=== PATIENT | female | born 1950 | race Caucasian/White ===

== ENCOUNTER → 2017-11-11 | Outpatient (CLI) | payer BC ==
[~2017-11-11] MED LIST: ALPR.5 PO; AMIT50 PO; AMIT75 PO; ASPI81EC; ATEN25 PO; ATEN50 PO; CALCIUM; CALCIUM/VIT D PO; CIPR500 PO; CLIN300 PO; DOXY100 PO; ERGO50000 PO; ESTROVEN; FENO160 PO; LISI5 PO; METO25 PO; MULVITMINF; NITR100CA PO; OMEP10ER PO; OMEP20ER PO; PARO20 PO; PHENA200 PO; PRAV20 PO; PROACE100 PO; QUET25; RXPHEN200 PO; RXPROACE PO; SULTRIDS PO; VIT C; ZOLP10 PO; ZOLP5 PO
== END | disposition home or self-care (01) ==
LOC: LAB SHORT 17:43 → LAB 17:43
DX: R30.0 Dysuria (principal)
CPT/HCPCS: 87077; 87086; 87186

== ENCOUNTER 2018-01-18 22:22 | Emergency (ER) | payer BC ==
[~2018-01-18] VITALS: Ht 154.9 cm; Wt 78.5 kg
[2018-01-18 23:27] LABS: Source, Urine Voided
[2018-01-18] MEDS ORDERED: LOVA40 (23:28)
[2018-01-18 23:46] LABS: Appearance, Urine Cloudy (Clear); Bilirubin, Urine Neg (Neg); Blood, Urine 5+ (Neg); Color, Urine Red (P-Yellow); Glucose Qualitative, Urine Neg (Neg); Ketones, Urine Neg (Neg); Leukocyte Esterase, Urine 3+ (Neg); Nitrite, Urine Neg (Neg); Protein, Urine 3+ (Neg); Urobilinogen, Urine NORM (Normal)
[2018-01-18 23:53] LABS: Red Blood Cells, Urine TNTC /hpf (0-2)
[2018-01-18 23:54] LABS: Bacteria Many /hpf; Squamous Epithelial Cells Few /hpf (Few)
[2018-01-19] MEDS ORDERED: Macrobid 100 M100 MG PO (00:06)
[2018-01-19] MEDS ORDERED: Pyridium200 MG PO (00:06)
== END 2018-01-19 00:22 | disposition home or self-care (01) ==
LOC: ER 22:22
PROVIDERS: Emergency Medicine
DX: R35.0 Frequency of micturition (principal); R39.15 Urgency of urination; Z88.0 Allergy status to penicillin; Z88.5 Allergy status to narcotic agent; Z79.899 Other long term (current) drug therapy; I10 Essential (primary) hypertension; Z87.891 Personal history of nicotine dependence
CPT/HCPCS: 81001; 87077; 87086; 87186; 99283

== ENCOUNTER → 2018-12-09 | Outpatient (CLI) | payer BC ==
[~2018-12-09] MED LIST changes: +ACET325 PO; +ASPI325EC PO; +CRUTCH2 XX; +HYDR1TAB94 PO; +LOSARTAN-HCTZ1 EAC1 PO; +LOVA40; +METO50 PO; +Macrobid 100 M100 MG PO; +Percocet 5-3251 EACH PO; +Pyridium200 MG PO; +TOLT4 PO
== END | disposition home or self-care (01) ==
LOC: LAB SHORT 14:45 → LAB EV 14:45
DX: R35.0 Frequency of micturition (principal)
CPT/HCPCS: 87077; 87086; 87147; 87186

== ENCOUNTER 2020-01-09 13:36 | Inpatient (IN) | payer MEDICARE, BC ==
[~2020-01-09] VITALS: Ht 154.9 cm; Wt 77.4 kg
[2020-01-09 14:01] LABS: Source, Urine Clean Catch
[2020-01-09 14:08] LABS: Bilirubin, Urine Neg (Neg); Blood, Urine Neg (Neg); Glucose Qualitative, Urine Neg (Neg); Ketones, Urine Neg (Neg); Leukocyte Esterase, Urine Neg (Neg); Nitrite, Urine Neg (Neg); Protein, Urine Neg (Neg); Specific Gravity, Urine 1.005 (1.003-1.022); Urobilinogen, Urine NORM (Normal)
[2020-01-09 14:17] LABS: Appearance, Urine Clear (Clear); Color, Urine Pale Yellow (P-Yellow)
[2020-01-09 14:58] LABS: BASOPHILS ABSOLUTE AUTO 0.03 K/mm3 (0.00-0.23); BASOPHILS PERCENT AUTO 1 % (0-2); EOSINOPHILS ABSOLUTE AUTO 0.28 K/mm3 (0.00-0.68); EOSINOPHILS PERCENT AUTO 6 % (0-6); Hematocrit 39.7 % (33.0-51.0); Hemoglobin 13.1 g/dL (11.5-16.0); IMMATURE GRAN ABSOLUTE AUTO 0.01 K/mm3 (0.00-0.10); IMMATURE GRAN PERCENT AUTO 0 % (0-1); LYMPHOCYTES ABSOLUTE AUTO 1.38 K/mm3 (0.84-5.20); LYMPHOCYTES PERCENT AUTO 31 % (21-46); MONOCYTES ABSOLUTE AUTO 0.55 K/mm3 (0.16-1.47); MONOCYTES PERCENT AUTO 12 % (4-13); Mean Corpuscular HGB 30.3 pg (26.0-34.0); Mean Corpuscular Volume 92 fL (80-100); Mean Platelet Volume 9.4 fL (9.1-12.4); NEUTROPHILS ABSOLUTE AUTO 2.27 K/mm3 (1.96-9.15); NEUTROPHILS PERCENT AUTO 50 % (41-73); Platelet Count 304 K/mm3 (150-400); RDW Coefficient Variation 12.5 % (11.7-14.2); RDW Standard Deviation 42.5 fL (35.1-46.3); Red Blood Cell Count 4.32 M/mm3 (3.80-5.20); White Blood Cell Count 4.52 K/mm3 (4.00-11.30)
[2020-01-09 15:12] LABS: International Normalized Ratio 1.01; Prothrombin Time Results 10.8 Sec (9.7-11.5)
[2020-01-09 15:24] LABS: Alanine Aminotransfer (ALT/SGP 53 U/L (12-78); Albumin, Blood 3.5 g/dL (3.4-5.0); Alk Phos 42 U/L (50-136); Anion Gap 5 mmol/L (6-16); Aspartate Aminotrans (AST/SGOT 31 U/L (12-37); Bilirubin, Total 0.6 mg/dL (0.1-1.0); Blood Urea Nitrogen 21 mg/dL (8-24); CO2, Blood 27 mmol/L (21-32); Calcium, Blood 9.2 mg/dL (8.5-10.1); Chloride, Blood 109 mmol/L (98-108); Creatinine, Blood 0.84 mg/dL (0.40-1.00); Globulin, Blood 3.5 g/dL (2.2-4.0); Glomerular Filtration Rate >60 (60-); Glucose, Blood 103 mg/dL (70-99); Potassium, Blood 3.5 mmol/L (3.5-5.5); Sodium, Blood 141 mmol/L (136-145)
[2020-01-09] MEDS ORDERED: FENO160 PO (16:11)
[2020-01-09] MEDS ORDERED: LOSA50 PO (16:11)
[2020-01-09] MEDS ORDERED: OMEP20ER PO (16:11)
[2020-01-09] MEDS ORDERED: TOLTERODINE TART4 MG PO (16:12)
[2020-01-09] MEDS ORDERED: HYDCHL25 PO (16:12)
[2020-01-09] MEDS ORDERED: MELATONIN5 M1 PO (21:24)
[2020-01-10 04:56] LABS: BASOPHILS ABSOLUTE AUTO 0.02 K/mm3 (0.00-0.23); BASOPHILS PERCENT AUTO 1 % (0-2); EOSINOPHILS ABSOLUTE AUTO 0.18 K/mm3 (0.00-0.68); EOSINOPHILS PERCENT AUTO 4 % (0-6); Hematocrit 39.3 % (33.0-51.0); IMMATURE GRAN ABSOLUTE AUTO 0.01 K/mm3 (0.00-0.10); IMMATURE GRAN PERCENT AUTO 0 % (0-1); LYMPHOCYTES ABSOLUTE AUTO 1.79 K/mm3 (0.84-5.20); LYMPHOCYTES PERCENT AUTO 41 % (21-46); MONOCYTES ABSOLUTE AUTO 0.54 K/mm3 (0.16-1.47); MONOCYTES PERCENT AUTO 12 % (4-13); Mean Corpuscular HGB 30.3 pg (26.0-34.0); Mean Corpuscular HGB Conc 33.1 g/dL (31.5-36.5); Mean Corpuscular Volume 92 fL (80-100); Mean Platelet Volume 9.6 fL (9.1-12.4); NEUTROPHILS ABSOLUTE AUTO 1.83 K/mm3 (1.96-9.15); NEUTROPHILS PERCENT AUTO 42 % (41-73); Platelet Count 314 K/mm3 (150-400); RDW Coefficient Variation 12.7 % (11.7-14.2); RDW Standard Deviation 42.2 fL (35.1-46.3); Red Blood Cell Count 4.29 M/mm3 (3.80-5.20); White Blood Cell Count 4.37 K/mm3 (4.00-11.30)
[2020-01-10 05:20] LABS: Anion Gap 5 mmol/L (6-16); Blood Urea Nitrogen 19 mg/dL (8-24); Bun/Creatinine Ratio 25.2 (12.0-20.0); CO2, Blood 27 mmol/L (21-32); Calcium, Blood 9.1 mg/dL (8.5-10.1); Chloride, Blood 108 mmol/L (98-108); Creatinine, Blood 0.76 mg/dL (0.40-1.00); Glomerular Filtration Rate >60 (60-); Glucose, Blood 114 mg/dL (70-99); Magnesium, Blood 2.1 mg/dL (1.6-2.4); Potassium, Blood 3.2 mmol/L (3.5-5.5); Sodium, Blood 140 mmol/L (136-145)
[2020-01-11 06:46] LABS: Anion Gap 4 mmol/L (6-16); Blood Urea Nitrogen 18 mg/dL (8-24); Bun/Creatinine Ratio 22.8 (12.0-20.0); CO2, Blood 27 mmol/L (21-32); Calcium, Blood 9.4 mg/dL (8.5-10.1); Chloride, Blood 110 mmol/L (98-108); Creatinine, Blood 0.79 mg/dL (0.40-1.00); Glomerular Filtration Rate >60 (60-); Glucose, Blood 129 mg/dL (70-99); Potassium, Blood 3.9 mmol/L (3.5-5.5); Sodium, Blood 141 mmol/L (136-145)
[2020-01-12] MEDS ORDERED: ASPI81CH PO (10:21)
[2020-01-12] MEDS ORDERED: ATOR20 PO (10:21)
[2020-01-12] MEDS ORDERED: AMLO5 PO (10:21)
== END 2020-01-12 10:58 | disposition home or self-care (01) | DRG 66 ==
LOC: ER 13:36 → MEDS 17:37
PROVIDERS: Physician Assistant; ADMIT Internal Medicine
DX: I63.512 Cerebral infarction due to unspecified occlusion or stenosis of left middle cerebral artery (principal); I10 Essential (primary) hypertension; E78.5 Hyperlipidemia, unspecified; N32.81 Overactive bladder; R47.81 Slurred speech
CPT/HCPCS: 36415; 70450; 70544; 70549; 70553; 80048; 80053; 81003; 83735; 85025; 85610; 92523; 93005; 93010; 93880; 97110; 97161; 97165; 97535; 99285-25; A9270; A9270-GY; A9579; J1650

== ENCOUNTER → 2021-06-23 | Outpatient (CLI) | payer OTHER, BC ==
[~2021-06-23] MED LIST changes: +AMLO5 PO; +ASPI81CH PO; +ATOR20 PO; +HYDCHL25 PO; +LOSA50 PO; +MELATONIN5 M1 PO; +TOLTERODINE TART4 MG PO
== END | disposition home or self-care (01) ==
LOC: LAB SHORT 14:08
DX: R82.79 Other abnormal findings on microbiological examination of urine (principal)
CPT/HCPCS: 87077; 87086; 87186

== ENCOUNTER 2022-09-12 16:11 | Emergency (ER) | payer OTHER ==
[~2022-09-12] VITALS: Ht 154.9 cm; Wt 77.1 kg
[2022-09-12 16:38] LABS: BASOPHILS ABSOLUTE AUTO 0.03 K/mm3 (0.00-0.23); BASOPHILS PERCENT AUTO 1 % (0-2); EOSINOPHILS ABSOLUTE AUTO 0.19 K/mm3 (0.00-0.68); EOSINOPHILS PERCENT AUTO 4 % (0-6); Hematocrit 42.2 % (33.0-51.0); Hemoglobin 14.3 g/dL (11.5-16.0); IMMATURE GRAN ABSOLUTE AUTO 0.01 K/mm3 (0.00-0.10); IMMATURE GRAN PERCENT AUTO 0 % (0-1); LYMPHOCYTES ABSOLUTE AUTO 1.35 K/mm3 (0.84-5.20); LYMPHOCYTES PERCENT AUTO 26 % (21-46); MONOCYTES ABSOLUTE AUTO 0.55 K/mm3 (0.16-1.47); MONOCYTES PERCENT AUTO 11 % (4-13); Mean Corpuscular HGB 30.4 pg (26.0-34.0); Mean Corpuscular HGB Conc 33.9 g/dL (31.5-36.5); Mean Corpuscular Volume 90 fL (80-100); NEUTROPHILS ABSOLUTE AUTO 3.13 K/mm3 (1.96-9.15); NEUTROPHILS PERCENT AUTO 59 % (41-73); Platelet Count 256 K/mm3 (150-400); RDW Coefficient Variation 12.8 % (11.7-14.2); RDW Standard Deviation 42.4 fL (35.1-46.3); Red Blood Cell Count 4.71 M/mm3 (3.80-5.20); White Blood Cell Count 5.26 K/mm3 (4.00-11.30)
[2022-09-12 16:56] LABS: Albumin, Blood 3.6 g/dL (3.4-5.0); Albumin/Globulin Ratio 0.9 (0.8-1.8); Bun/Creatinine Ratio 19.3 (12.0-20.0); Calcium, Blood 8.9 mg/dL (8.5-10.1); Creatinine, Blood 0.67 mg/dL (0.40-1.00); Potassium, Blood 3.4 mmol/L (3.5-5.5); Total Protein, Blood 7.6 g/dL (6.4-8.2)
[2022-09-12 18:02] VITALS: BP 125/69
== END 2022-09-12 18:20 | disposition home or self-care (01) ==
LOC: ER 16:11
PROVIDERS: Physician Assistant
DX: G45.9 Transient cerebral ischemic attack, unspecified (principal); I10 Essential (primary) hypertension; Z87.891 Personal history of nicotine dependence; Z88.0 Allergy status to penicillin; Z88.5 Allergy status to narcotic agent; Z88.8 Allergy status to other drugs, medicaments and biological substances; Z79.899 Other long term (current) drug therapy; Z79.82 Long term (current) use of aspirin
CPT/HCPCS: 36415; 70450; 80053; 85025; 93005; 93010; 99285-25

== ENCOUNTER → 2022-10-23 | Outpatient (CLI) | payer OTHER ==
[2022-10-24 09:59] LABS: Candida species (DNA Probe) Negative (NEGATIVE); G. vaginalis (DNA Probe) Negative (NEGATIVE); T. vaginalis (DNA Probe) Negative (NEGATIVE)
== END | disposition home or self-care (01) ==
LOC: LAB 18:03 → LAB SHORT 18:03
PROVIDERS: Family Medicine
DX: L29.2 Pruritus vulvae (principal)
CPT/HCPCS: 87480; 87510; 87660

== ENCOUNTER → 2023-01-29 | Outpatient (CLI) | payer OTHER ==
[2023-01-30 08:15] LABS: Candida species (DNA Probe) Negative (NEGATIVE); G. vaginalis (DNA Probe) Negative (NEGATIVE); T. vaginalis (DNA Probe) Negative (NEGATIVE)
== END | disposition home or self-care (01) ==
LOC: LAB SHORT 11:30 → LAB 11:30
PROVIDERS: Internal Medicine
DX: N76.0 Acute vaginitis (principal)
CPT/HCPCS: 87480; 87510; 87660

== ENCOUNTER 2023-12-14 22:38 | Emergency (ER) | payer OTHER ==
[~2023-12-14] VITALS: Ht 154.9 cm; Wt 79.4 kg
[2023-12-14 22:55] VITALS: BP 160/88
[2023-12-14 23:03] LABS: Source, Urine Clean Catch
[2023-12-14 23:11] LABS: Bilirubin, Urine Neg (Neg); Blood, Urine 5+ (Neg); Glucose Qualitative, Urine Neg (Neg); Ketones, Urine 1+ (Neg); Leukocyte Esterase, Urine 3+ (Neg); Nitrite, Urine Pos (Neg); Protein, Urine 4+ (Neg); Specific Gravity, Urine 1.015 (1.003-1.022); Urobilinogen, Urine NORM (Normal); pH, Urine 6.5 (5.0-8.0)
[2023-12-14 23:38] LABS: Appearance, Urine Turbid (Clear); Color, Urine Red (P-Yellow)
[2023-12-15] MEDS ORDERED: CEFP200 PO (00:07)
[2023-12-15 00:18] LABS: Bacteria Mod /hpf; Red Blood Cells, Urine TNTC /hpf (0-2); Squamous Epithelial Cells Rare /hpf (Few); White Blood Cells, Urine 25-50 /hpf (0-5)
[2023-12-15] MEDS ORDERED: Cefpodoxime Proxetil 200 MG Tab PO ONE (00:19)
== END 2023-12-15 00:30 | disposition home or self-care (01) ==
LOC: ER 22:38
PROVIDERS: Student in an Organized Health Care Education/Training Program
DX: N39.0 Urinary tract infection, site not specified (principal); I10 Essential (primary) hypertension; E78.5 Hyperlipidemia, unspecified; Z87.891 Personal history of nicotine dependence; Z86.73 Personal history of transient ischemic attack (TIA), and cerebral infarction without residual deficits; Z79.82 Long term (current) use of aspirin; Z79.899 Other long term (current) drug therapy; Z88.0 Allergy status to penicillin; Z88.5 Allergy status to narcotic agent; Z88.8 Allergy status to other drugs, medicaments and biological substances
CPT/HCPCS: 81001; 87077; 87086; 87186; 99283; A9270

== ENCOUNTER → 2024-01-13 | Outpatient (CLI) | payer OTHER ==
[~2024-01-13] MED LIST changes: +CEFP200 PO
== END | disposition home or self-care (01) ==
LOC: LAB 17:38 → LAB SHORT 17:38
DX: N39.0 Urinary tract infection, site not specified (principal)
CPT/HCPCS: 87077; 87086; 87186

== ENCOUNTER → 2024-02-16 | Outpatient (CLI) | payer OTHER | LOC: LAB SHORT 17:49 → LAB 17:49 | DX: N39.0 Urinary tract infection, site not specified (principal) | CPT/HCPCS: 87077; 87086; 87186 ==

== ENCOUNTER → 2024-03-03 | Outpatient (CLI) | payer OTHER ==
[2024-03-03 19:46] LABS: Bacterial Vaginosis PCR Negative (NEGATIVE)
[2024-03-03 19:52] LABS: Candida Group, PCR DETECTED (NOT DETECT); Candida glabrata-krusei, PCR DETECTED (NOT DETECT)
== END | disposition home or self-care (01) ==
LOC: LAB SHORT 15:40 → LAB 15:40
PROVIDERS: Internal Medicine
DX: N76.1 Subacute and chronic vaginitis (principal)
CPT/HCPCS: 87481; 87661; 87801

== ENCOUNTER → 2024-05-02 | Outpatient (CLI) | payer OTHER ==
[2024-05-02 15:24] LABS: Bacterial Vaginosis PCR Negative (NEGATIVE); Candida Group, PCR NOT DETECTED (NOT DETECT); Candida glabrata-krusei, PCR NOT DETECTED (NOT DETECT)
== END | disposition home or self-care (01) ==
LOC: LAB 10:50 → LAB SHORT 10:50
PROVIDERS: Family Medicine
DX: L25.9 Unspecified contact dermatitis, unspecified cause (principal)
CPT/HCPCS: 87481; 87661; 87801

== ENCOUNTER → 2024-07-13 | Outpatient (CLI) | payer OTHER | END | disposition home or self-care (01) | LOC: LAB 11:39 → LAB SHORT 11:39 | DX: N30.01 Acute cystitis with hematuria (principal) | CPT/HCPCS: 87086 ==

== ENCOUNTER → 2024-07-20 | Outpatient (CLI) | payer OTHER ==
[2024-07-20 19:52] LABS: Bacterial Vaginosis PCR Negative (NEGATIVE); Candida Group, PCR NOT DETECTED (NOT DETECT)
[2024-07-20 20:47] LABS: Candida glabrata-krusei, PCR DETECTED (NOT DETECT)
== END ==
LOC: LAB 16:32 → LAB SHORT 16:32
PROVIDERS: Family Medicine
DX: R35.0 Frequency of micturition (principal)
CPT/HCPCS: 81515

== ENCOUNTER → 2024-08-29 | Outpatient (CLI) | payer OTHER ==
[2024-08-29 16:59] LABS: Source, Urine Clean Catch
[2024-08-29 19:09] LABS: Appearance, Urine Clear (Clear); Bilirubin, Urine Neg (Neg); Blood, Urine Neg (Neg); Glucose Qualitative, Urine Neg (Neg); Ketones, Urine Neg (Neg); Leukocyte Esterase, Urine Neg (Neg); Nitrite, Urine Neg (Neg); Protein, Urine Neg (Neg); Specific Gravity, Urine 1.015 (1.003-1.022); Urobilinogen, Urine NORM (Normal)
[2024-08-29 19:11] LABS: Color, Urine Pale Yellow (P-Yellow)
[2024-08-29 20:11] LABS: Bacterial Vaginosis PCR Negative (NEGATIVE); Candida Group, PCR NOT DETECTED (NOT DETECT); Candida glabrata-krusei, PCR NOT DETECTED (NOT DETECT)
== END | disposition home or self-care (01) ==
LOC: LAB SHORT 16:56 → LAB 16:56
PROVIDERS: Obstetrics & Gynecology
DX: R35.0 Frequency of micturition (principal); B37.9 Candidiasis, unspecified
CPT/HCPCS: 81003; 81515

== ENCOUNTER 2024-11-30 08:32 | Day surgery (SDC) | payer OTHER ==
[~2024-11-30] VITALS: Ht 154.9 cm; Wt 78.4 kg
[2024-11-30] VITALS (15 sets, daily range): BP systolic 150–202; BP diastolic 70–98
[~2024-11-30 08:32] MED LIST changes: +ALEN70 PO; +ASTEPRO AL205.5 MCG/; +EZET10 PO; +Estrace Vagin42.5 GM VAG; +MASOPHEN500 M2 PO; +MELATONIN TR 51 EAC1 PO; +METO25ER PO; +OLME20 PO
--- NOTE | 2024-11-30 09:23 | NUR ---
History, Chart, Medications and Allergies reviewed before start of procedure. Pre-Op teaching done. Pt verbalizes understanding. Patient confirms NPO status and agrees with scheduled surgery. PT STATED "FORGOT TO TAKE MY BP MED THIS MORNING SINCE IM OLD AND FORGET THINGS." PT REMOVED GLASSES AND PLACED IN BELONGINGS BAG UNDER GURNEY. PT REQUESTS TO LEAVE DENTURES IN UNTIL ROLLING BACK TO OR. WILL GIVE DOUBLE CUT SAWYER LABELED DENTURE CUP.
[2024-11-30] MEDS ORDERED: Bupivacaine 0.5% W/EPI 1:200000 SDV 30 ML Vial ONE (09:26)
[2024-11-30] MEDS ORDERED: Midazolam HCl 1MG / ML 2ML Vial IV ONE (09:30)
[2024-11-30] MEDS ORDERED: Metoprolol Tartrate 1 MG/ML 5 ML VIAL IV ONE (09:35)
[2024-11-30] MEDS ORDERED: FentaNYL Citrate 50 MCG/ML 2 ML Injection IV PRN (09:55)
[2024-11-30] MEDS ORDERED: FentaNYL Citrate 50 MCG/ML 2 ML Injection ONE (09:59)
[2024-11-30] MEDS ORDERED: Ondansetron HCl 2 MG / ML 2ML Vial IV PRN (10:00)
[2024-11-30] MEDS ORDERED: Ondansetron HCl 2 MG / ML 2ML Vial ONE (11:44)
[2024-11-30] MEDS ORDERED: Dexamethasone Sod Phos 10 MG/ML 1ML VIAL ONE (11:44)
[2024-11-30] MEDS ORDERED: Estradiol Vag Cream 0.1 MG/G 42.5 GM Tube VAG ONE (12:15)
--- NOTE | 2024-11-30 12:24 | NUR ---
11/30/24 Kelly4 Jane Dillard ESTRADIOL VAGINAL CREAM 42.5G AT 1225
[2024-11-30] MEDS ORDERED: Labetalol HCL 5 MG/ML 4ML Injection (Single Dose) ONE (12:32)
--- NOTE | 2024-11-30 13:56 | NUR ---
POST-OP PATIENT TO ROOM 224 @ 1345, CLEMENTE AND JUAN PAD IN PLACE. PACKING IN PLACE. PAD IS C/D. IV FLUIDS RUNNING. REPORTS N/T IN BILAT FEET BASELINE. ABLE TO MAKE NEEDS KNOWN. CALL LIGHT IN REACH.
--- NOTE | 2024-11-30 14:24 | NUR ---
Pt. is awake in bed when she welcomes my visit. Pt. is pleasant. Spouse is at bedside. Facilitaed a life review and consdiered matters of babatunde and belief. Listen with empathy and interest. Pt. displays evidence of being aware and engaged and verbalizes an expectation that she will likely stay over might, before discharge tomorrow. Prayed with the Pt. Pt. verbalized gratitude for the spiritual care visit and welcomed this thread dresser to return.
--- NOTE | 2024-11-30 14:59 | NUR ---
UPDATE PATIENT BP IS 180S/80S, HR IN THE 70S. CALL MADE TO DR. CARDONA TO VITO ON BP. AWAITING CALL BACK FOR ORDERS.
--- NOTE | 2024-11-30 17:43 | NUR ---
SHIFT SUMMARY PATIENT IS AOX4, WALKING HALLS, LAP SITES C/D/I. TOLERATING PO INTAKE. JACKSON PAIN, ORDER FROM DR. CARDONA TO IA CLEMENTE, AND PACKING AND VOID TRIAL. IF PATIENT VOIDS PATIENT OK TO IA HOME.
--- NOTE | 2024-11-30 18:00 | NUR ---
CLEMENTE REMOVED AT THIS TIME. PT TOLERATED WELL. PACKING REMOVED SMALL AMOUNT SANGUINOUS ON PACKING. NONE ON UNDERWEAR. EDUCATED PT TO CONTINUE TO DRINK FLUIDS FOR POST CLEMENTE REMOVAL VOID. EDUCATED PATIENT TO CALL IF SHE FEELS AN INCREASE IN DISCHARGE ON PAD. CURRENTLY AMBULATING IN THE HALLWAYS. DENIES ANY PAIN.
[2024-12-01 00:43] VITALS: BP 149/75
[2024-12-01 05:08] VITALS: BP 175/85
[2024-12-01 07:31] VITALS: BP 142/78
--- NOTE | 2024-12-01 08:08 | NUR ---
SHIFT SUMMARY NOC. PT A/O X4. PT POD 1 FOR A&P REPAIR. PT HAVING ACUTE URINARY RETENTION. PT NEEDED STRAIGHT CATH X2 AND THEN CLEMENTE PLACED PER PROTOCOL AND ORTHOTIC AND PROSTHETIC TECHNICIAN INSTRUCTION AFTER CONTINUED RETENTION. PT MEDICATED X1 WITH 400MG IBUPROFEN FOR HEADACHE. PT TOLERATING DIET, MAKES NEEDS KNOWN, CALL LIGHT IN REACH.
--- NOTE | 2024-12-01 09:15 | NUR ---
DISCHARGE POD 1 A&P REPAIR CLEMENTE CATHETER REMAINED PATENT AND DRAINING, PT CONTINUED TO DENY PAIN DURING SHIFT AND T/O NIGHT. CLEMENTE BAG CHANGED TO A LEG BAG. NO VAGINAL DRAINAGE TODAY. AND PT DENIED SIGNIFICANT THROUGH THE NIGHT. EDUCATION PROVIDED TO PATIENT ON EMPTYING BAG AND MONITORING HER OUTPUT. EXTRA CATHETER CLEANING WIPES PROVIDED AND EDUCATION GIVEN ON KEEPING JUAN AREA CLEAN AND PERFORMING CATH CARE DAILY. PT VERBALIZED UNDERSTANDING. PLAN IS TO FOLLOW UP THURSDAY WITH DR. CARDONA FOR CATH REMOVAL AND VOID TRIAL. PT ELECTED TO AMBULATED OUT ON HER OWN. ALL BELONGINGS WITH PATIENT.
== END 2024-12-01 09:20 | disposition home or self-care (01) ==
LOC: ORSCMMR 08:32 → ORD 10:00 → ORSCMMR 10:00 → SURS 13:19 → ORSCMMR 12-01 09:20
PROVIDERS: Obstetrics & Gynecology
PROC: 0JQC0ZZ Repair Pelvic Region Subcutaneous Tissue and Fascia, Open Approach (ICD-10-PCS; principal; 2024-11-30 10:00)
DX: N99.3 Prolapse of vaginal vault after hysterectomy (principal); I10 Essential (primary) hypertension; G47.33 Obstructive sleep apnea (adult) (pediatric); I25.10 Atherosclerotic heart disease of native coronary artery without angina pectoris; Z87.891 Personal history of nicotine dependence; Z86.73 Personal history of transient ischemic attack (TIA), and cerebral infarction without residual deficits; E66.9 Obesity, unspecified; Z68.32 Body mass index [BMI] 32.0-32.9, adult
CPT/HCPCS: 51702; 93005; 93010; A9270; J1100; J2250; J2405; J2704; J3010; J7120

== ENCOUNTER 2024-12-08 21:20 | Observation (INO) | payer OTHER ==
[~2024-12-08] VITALS: Ht 154.9 cm; Wt 78.0 kg
[2024-12-08 22:40] LABS: BASOPHILS ABSOLUTE AUTO 0.03 K/mm3 (0.00-0.23); BASOPHILS PERCENT AUTO 0 % (0-2); EOSINOPHILS ABSOLUTE AUTO 0.02 K/mm3 (0.00-0.68); EOSINOPHILS PERCENT AUTO 0 % (0-6); Hematocrit 40.7 % (33.0-51.0); Hemoglobin 13.8 g/dL (11.5-16.0); IMMATURE GRAN ABSOLUTE AUTO 0.05 K/mm3 (0.00-0.10); IMMATURE GRAN PERCENT AUTO 1 % (0-1); LYMPHOCYTES ABSOLUTE AUTO 0.24 K/mm3 (0.84-5.20); LYMPHOCYTES PERCENT AUTO 3 % (21-46); MONOCYTES ABSOLUTE AUTO 0.18 K/mm3 (0.16-1.47); MONOCYTES PERCENT AUTO 2 % (4-13); Mean Corpuscular HGB Conc 33.9 g/dL (31.5-36.5); Mean Corpuscular Volume 93 fL (80-100); NEUTROPHILS ABSOLUTE AUTO 8.87 K/mm3 (1.96-9.15); NEUTROPHILS PERCENT AUTO 95 % (41-73); NRBC ABSOLUTE 0.00 K/mm3 (0.00-0.02); NRBC Auto 0.0 /100 WBC (0.0-0.2); Platelet Count 242 K/mm3 (150-400); RDW Coefficient Variation 13.1 % (11.7-14.2); RDW Standard Deviation 44.5 fL (35.1-46.3)
[2024-12-08 22:59] LABS: Alanine Aminotransfer (ALT/SGP 21.0 U/L (12-78); Albumin, Blood 3.7 g/dL (3.4-5.0); Albumin/Globulin Ratio 0.9 (0.8-1.8); Anion Gap 8.0 mmol/L (3-11); Aspartate Aminotrans (AST/SGOT 18.0 U/L (12-37); Bilirubin, Total 1.2 mg/dL (0.1-1.0); Blood Urea Nitrogen 16.0 mg/dL (8-24); CO2, Blood 24.0 mmol/L (21-32); Calcium, Blood 9.2 mg/dL (8.5-10.1); Chloride, Blood 109.0 mmol/L (98-108); Creatinine, Blood 0.77 mg/dL (0.40-1.00); Globulin, Blood 4.0 g/dL (2.2-4.0); Glucose, Blood 128.0 mg/dL (70-99); Potassium, Blood 3.1 mmol/L (3.5-5.5); Sodium, Blood 138.0 mmol/L (136-145); Total Protein, Blood 7.7 g/dL (6.4-8.2)
[2024-12-08] MEDS ORDERED: NS 1,000 ML IV SCH (23:05)
[2024-12-08 23:46] LABS: Source, Urine Clean Catch
[2024-12-08 23:50] LABS: Bilirubin, Urine Neg (Neg); Glucose Qualitative, Urine Neg (Neg); Ketones, Urine Neg (Neg); Leukocyte Esterase, Urine 1+ (Neg); Protein, Urine Neg (Neg); Specific Gravity, Urine 1.010 (1.003-1.022); Urobilinogen, Urine NORM (Normal)
[2024-12-08 23:55] LABS: Color, Urine Pale Yellow (P-Yellow)
[2024-12-09] MEDS ORDERED: CefTRIAXone Sodium 1,000 MG in NS 100 ML IV ONE (00:15)
[2024-12-09] MEDS ORDERED: Potassium Chloride 10 Meq Tablet SA PO ONE (01:16)
[2024-12-09 03:10] LABS: Source, Urine Foley catheter
[2024-12-09 03:32] LABS: Bilirubin, Urine Neg (Neg); Glucose Qualitative, Urine Neg (Neg); Ketones, Urine Neg (Neg); Leukocyte Esterase, Urine 1+ (Neg); Protein, Urine 2+ (Neg); Specific Gravity, Urine 1.015 (1.003-1.022); Urobilinogen, Urine NORM (Normal)
[2024-12-09 03:45] LABS: Color, Urine Yellow (P-Yellow)
[2024-12-09 05:49] VITALS: BP 150/72
[2024-12-09 06:18] LABS: BASOPHILS ABSOLUTE AUTO 0.04 K/mm3 (0.00-0.23); BASOPHILS PERCENT AUTO 0 % (0-2); EOSINOPHILS ABSOLUTE AUTO 0.02 K/mm3 (0.00-0.68); EOSINOPHILS PERCENT AUTO 0 % (0-6); Hematocrit 35.6 % (33.0-51.0); Hemoglobin 11.9 g/dL (11.5-16.0); IMMATURE GRAN ABSOLUTE AUTO 0.04 K/mm3 (0.00-0.10); IMMATURE GRAN PERCENT AUTO 0 % (0-1); LYMPHOCYTES ABSOLUTE AUTO 0.85 K/mm3 (0.84-5.20); LYMPHOCYTES PERCENT AUTO 6 % (21-46); MONOCYTES ABSOLUTE AUTO 1.08 K/mm3 (0.16-1.47); MONOCYTES PERCENT AUTO 8 % (4-13); Mean Corpuscular HGB Conc 33.4 g/dL (31.5-36.5); Mean Corpuscular Volume 93 fL (80-100); NEUTROPHILS ABSOLUTE AUTO 12.09 K/mm3 (1.96-9.15); NEUTROPHILS PERCENT AUTO 86 % (41-73); NRBC ABSOLUTE 0.00 K/mm3 (0.00-0.02); NRBC Auto 0.0 /100 WBC (0.0-0.2); Platelet Count 245 K/mm3 (150-400); RDW Coefficient Variation 13.2 % (11.7-14.2); RDW Standard Deviation 45.4 fL (35.1-46.3)
[2024-12-09 06:38] LABS: Anion Gap 8.0 mmol/L (3-11); Blood Urea Nitrogen 11.0 mg/dL (8-24); CO2, Blood 25.0 mmol/L (21-32); Calcium, Blood 8.5 mg/dL (8.5-10.1); Chloride, Blood 112.0 mmol/L (98-108); Creatinine, Blood 0.72 mg/dL (0.40-1.00); Glucose, Blood 115.0 mg/dL (70-99); Potassium, Blood 3.9 mmol/L (3.5-5.5); Sodium, Blood 141.0 mmol/L (136-145)
--- NOTE | 2024-12-09 06:39 | NUR ---
ARRIVAL NOTE PT ARRIVED TO UNIT FROM ED. IS A/OX4 WITH VSS. ABLE TO TRANSFER SELF INTO BED. DENIES CP/PRESSURE, SOB, OR N/V. IV SL. REPORTS N/T AT BASELINE TO BLE. IS PHILLIP PO INTAKE. CLEMENTE IN PLACE. ORIENTATION TO ROOM GIVEN. PT CURRENTLY SIPPING DECAF COFFEE IN BED. DENIES NEEDS. WILL GIVE REPORT TO ONCOMING RN.
[2024-12-09 07:51] VITALS: BP 135/72
[2024-12-09] MEDS ORDERED: Lactobacil 2-S.Thermo-Bifido 1 1 Cap PO SCH (09:00)
[2024-12-09 15:04] VITALS: BP 127/68
--- NOTE | 2024-12-09 18:51 | NUR ---
SHIFT SUMMARY PT ALERT, ORIENTED X4; CALM AND COOPERATIVE WITH CARE. PT SBA TO AND FROM CHAIR T/O DAY. PT REPORTING HEADACHE THIS AM, NOTIFIED PROVIDER, NEW ORDERS FOR TYLENOL. PT DENIES CHEST PAIN/PRESSURE, SOB, NAUSEA,DIZZINESS AND NUMB/TINGLING. VSS. CLEMENTE PATENT AND DRAINING. AFEBRILE. CALL LIGHT WITHIN REACH.
[2024-12-09 20:19] VITALS: BP 150/71
[2024-12-09] MEDS ORDERED: CefTRIAXone Sodium 1,000 MG in NS 100 ML IV SCH (21:00)
[2024-12-10 04:55] VITALS: BP 142/73
[2024-12-10 05:20] LABS: BASOPHILS ABSOLUTE AUTO 0.03 K/mm3 (0.00-0.23); BASOPHILS PERCENT AUTO 1 % (0-2); EOSINOPHILS ABSOLUTE AUTO 0.24 K/mm3 (0.00-0.68); EOSINOPHILS PERCENT AUTO 4 % (0-6); Hematocrit 39.1 % (33.0-51.0); Hemoglobin 12.9 g/dL (11.5-16.0); IMMATURE GRAN ABSOLUTE AUTO 0.03 K/mm3 (0.00-0.10); IMMATURE GRAN PERCENT AUTO 1 % (0-1); LYMPHOCYTES ABSOLUTE AUTO 1.20 K/mm3 (0.84-5.20); LYMPHOCYTES PERCENT AUTO 18 % (21-46); MONOCYTES ABSOLUTE AUTO 0.84 K/mm3 (0.16-1.47); MONOCYTES PERCENT AUTO 13 % (4-13); Mean Corpuscular HGB Conc 33.0 g/dL (31.5-36.5); Mean Corpuscular Volume 96 fL (80-100); NEUTROPHILS ABSOLUTE AUTO 4.27 K/mm3 (1.96-9.15); NEUTROPHILS PERCENT AUTO 65 % (41-73); NRBC ABSOLUTE 0.00 K/mm3 (0.00-0.02); NRBC Auto 0.0 /100 WBC (0.0-0.2); Platelet Count 251 K/mm3 (150-400); RDW Coefficient Variation 13.3 % (11.7-14.2); RDW Standard Deviation 46.6 fL (35.1-46.3)
[2024-12-10 05:43] LABS: Anion Gap 4.0 mmol/L (3-11); Blood Urea Nitrogen 9.0 mg/dL (8-24); CO2, Blood 28.0 mmol/L (21-32); Calcium, Blood 8.7 mg/dL (8.5-10.1); Chloride, Blood 110.0 mmol/L (98-108); Creatinine, Blood 0.72 mg/dL (0.40-1.00); Glucose, Blood 116.0 mg/dL (70-99); Potassium, Blood 4.1 mmol/L (3.5-5.5); Sodium, Blood 138.0 mmol/L (136-145)
[2024-12-10 07:22] VITALS: BP 171/74
--- NOTE | 2024-12-10 08:35 | NUR ---
NO ACUTE CHANGES T/O NOC. RESTED WELL. MEDICATED PER EMAR AND PRN. CLEMENTE PATENT WITH CLEAR YELLOW URINE. REPORT TO RN TAKING PT.
[2024-12-10] MEDS ORDERED: Enoxaparin 40 MG/0.4 ML SYR SC SCH (09:00)
[2024-12-10 11:21] VITALS: BP 147/77
[2024-12-10] MEDS ORDERED: VISBIOME 112.51 EACH PO (14:40)
[2024-12-10] MEDS ORDERED: LEVAQUIN750 MG PO (14:41)
[2024-12-10 14:48] VITALS: BP 150/72
--- NOTE | 2024-12-10 15:18 | NUR ---
DISCHARGE NOTE PATIENT ALERT AND ORIENTED X4. COMMUNICATES NEEDS EFFECTIVELY. HX OF HTN - SBP 170s THIS MORNING. SBP 140s FOLLOWING HOME HTN MEDICATION ADMINISTRATION. DENIES CHEST PAIN, PRESSURE. ON ROOM AIR, SATs >90%. INDEPENDENT IN ROOM. ADMITTED FOR UTI DUE TO INDWELLING CLEMENTE POST RECENT VAGINAL PROLAPSE PROCEDURE - SCHEDULED APPOINTMENT ON THURSDAY TO FOLLOW W/ [employer] BUS DRIVER . SAHIL AT BEDSIDE THIS MORNING - PATIENT TO DC HOME W/ CLEMENTE CATHETER. [employer] BUS DRIVER MD TO MANAGE REMOVAL OUTPATIENT. IV REMOVED. WRITTEN AND VERBAL EDUCATION PROVIDED - PATIENT STATES UNDERSTANDING. PERSONAL BELONGINGS WITH PATIENT. PATIENTs SPOUSE TO TRANSFER PATIENT HOME. PATIENT DECLINED WC. PATIENT AMBULATED OFF UNIT AT APPROX 1514.
== END 2024-12-10 15:13 | disposition home or self-care (01) ==
LOC: ER 21:20 → SURS 21:21 → ERHOLD 21:21 → SURS 12-09 05:30
PROVIDERS: Family Medicine; Physician Assistant; ADMIT Internal Medicine
DX: A41.9 Sepsis, unspecified organism (principal); N39.0 Urinary tract infection, site not specified; R65.20 Severe sepsis without septic shock; D72.829 Elevated white blood cell count, unspecified; E87.6 Hypokalemia; N99.3 Prolapse of vaginal vault after hysterectomy; I10 Essential (primary) hypertension; E78.5 Hyperlipidemia, unspecified; Z86.73 Personal history of transient ischemic attack (TIA), and cerebral infarction without residual deficits; Z88.0 Allergy status to penicillin; Z88.5 Allergy status to narcotic agent; Z88.8 Allergy status to other drugs, medicaments and biological substances; Z79.82 Long term (current) use of aspirin; Z79.899 Other long term (current) drug therapy; Z90.710 Acquired absence of both cervix and uterus
CPT/HCPCS: 36415; 51702; 80048; 80053; 81001; 83605; 83735; 85025; 87040; 87077; 87086; 87186; 93005; 93010; 96361; 96365; 96366; 96372; 99285-25; A9270; G0378; J0696; J1650; J7030

== ENCOUNTER → 2024-12-23 | Outpatient (CLI) | payer OTHER ==
[~2024-12-23] MED LIST changes: +LEVAQUIN750 MG PO; +VISBIOME 112.51 EACH PO
[2024-12-23 15:26] LABS: Bacterial Vaginosis PCR Negative (NEGATIVE); Candida Group, PCR NOT DETECTED (NOT DETECT); Candida glabrata-krusei, PCR NOT DETECTED (NOT DETECT)
== END ==
LOC: LAB SHORT 12:56 → LAB 12:56
PROVIDERS: Obstetrics & Gynecology
DX: N76.0 Acute vaginitis (principal)
CPT/HCPCS: 81515

== ENCOUNTER → 2025-05-01 | Outpatient (CLI) | payer OTHER ==
[2025-05-01 12:58] LABS: BASOPHILS ABSOLUTE AUTO 0.03 K/mm3 (0.00-0.23); BASOPHILS PERCENT AUTO 1 % (0-2); EOSINOPHILS ABSOLUTE AUTO 0.25 K/mm3 (0.00-0.68); EOSINOPHILS PERCENT AUTO 4 % (0-6); Hematocrit 43.3 % (33.0-51.0); Hemoglobin 14.6 g/dL (11.5-16.0); IMMATURE GRAN ABSOLUTE AUTO 0.01 K/mm3 (0.00-0.10); IMMATURE GRAN PERCENT AUTO 0 % (0-1); LYMPHOCYTES ABSOLUTE AUTO 1.40 K/mm3 (0.84-5.20); LYMPHOCYTES PERCENT AUTO 24 % (21-46); MONOCYTES ABSOLUTE AUTO 0.57 K/mm3 (0.16-1.47); MONOCYTES PERCENT AUTO 10 % (4-13); Mean Corpuscular HGB Conc 33.7 g/dL (31.5-36.5); Mean Corpuscular Volume 94 fL (80-100); NEUTROPHILS ABSOLUTE AUTO 3.58 K/mm3 (1.96-9.15); NEUTROPHILS PERCENT AUTO 61 % (41-73); NRBC ABSOLUTE 0.00 K/mm3 (0.00-0.02); NRBC Auto 0.0 /100 WBC (0.0-0.2); Platelet Count 277 K/mm3 (150-400); RDW Coefficient Variation 13.4 % (11.7-14.2); RDW Standard Deviation 46.1 fL (35.1-46.3)
[2025-05-01 13:09] LABS: Alanine Aminotransfer (ALT/SGP 40.0 U/L (12-78); Albumin, Blood 3.8 g/dL (3.4-5.0); Albumin/Globulin Ratio 0.9 (0.8-1.8); Anion Gap 13.0 mmol/L (3-11); Aspartate Aminotrans (AST/SGOT 24.0 U/L (12-37); Bilirubin, Total 1.2 mg/dL (0.1-1.0); Blood Urea Nitrogen 14.0 mg/dL (8-24); CO2, Blood 28.0 mmol/L (21-32); Calcium, Blood 9.6 mg/dL (8.5-10.1); Chloride, Blood 107.0 mmol/L (98-108); Creatinine, Blood 0.74 mg/dL (0.40-1.00); Globulin, Blood 4.1 g/dL (2.2-4.0); Glucose, Blood 107.0 mg/dL (70-99); Potassium, Blood 4.0 mmol/L (3.5-5.5); Sodium, Blood 144.0 mmol/L (136-145); Total Protein, Blood 7.9 g/dL (6.4-8.2)
== END ==
LOC: LAB SHORT 12:54 → LAB 12:54
PROVIDERS: Physician Assistant
DX: I10 Essential (primary) hypertension (principal)
CPT/HCPCS: 80053; 84484; 85025